=== PATIENT | male | born 1955 | race Caucasian/White ===

== ENCOUNTER 2025-01-06 06:20 | Day surgery (SDC) | payer MEDICARE, SELFPAY | END 2025-01-06 14:08 | disposition home or self-care (01) | LOC: GI 06:20 | PROVIDERS: ATTENDING PHYSICIAN Internal Medicine Gastroenterology; FAMILY PHYSICIAN Family Medicine | DX: Z12.11 Encounter for screening for malignant neoplasm of colon (principal); K57.30 Diverticulosis of large intestine without perforation or abscess without bleeding; K64.8 Other hemorrhoids; D12.3 Benign neoplasm of transverse colon; K62.1 Rectal polyp; Z86.0100 Personal history of colon polyps, unspecified | CPT/HCPCS: 45385; 88305 ==

== ENCOUNTER → 2025-01-27 13:54 | Outpatient (REF) | payer MEDICARE, SELFPAY | LOC: RAD 13:54 | PROVIDERS: ATTENDING PHYSICIAN Specialist; FAMILY PHYSICIAN Family Medicine | DX: N39.0 Urinary tract infection, site not specified (principal); R33.9 Retention of urine, unspecified; Z80.42 Family history of malignant neoplasm of prostate | CPT/HCPCS: 76770 ==

== ENCOUNTER → 2025-04-28 11:42 | Outpatient (REF) | payer MEDICARE, SELFPAY | LOC: RAD 11:42 | PROVIDERS: ATTENDING PHYSICIAN Family Medicine | DX: K21.9 Gastro-esophageal reflux disease without esophagitis (principal); F52.21 Male erectile disorder; F41.9 Anxiety disorder, unspecified; E78.00 Pure hypercholesterolemia, unspecified; Z00.01 Encounter for general adult medical examination with abnormal findings; G62.9 Polyneuropathy, unspecified; N41.0 Acute prostatitis; K57.92 Diverticulitis of intestine, part unspecified, without perforation or abscess without bleeding; F39 Unspecified mood [affective] disorder; M54.50 Low back pain, unspecified; M54.9 Dorsalgia, unspecified; M54.2 Cervicalgia | CPT/HCPCS: 72052; 72072; 72110 ==